=== PATIENT | female | born 1990 ===

== ENCOUNTER 2018-10-02 14:12 | Emergency (ER) | payer OTHER ==
[2018-10-02 14:30] VITALS: RESP 18; O2SAT 100
--- NOTE | 2018-10-02 15:06 | C.PDOC ---
History Of Present Illness 28 year old female comes in to the emergency department complaining of sore throat, glands feeling swollen, and bodyaches x2 days. States she developed a fever this morning. Denies any nausea, vomiting, diarrhea, cough, SOB, or other complaints. Time Seen by Provider: 10/02/18 14:34 Chief Complaint (Nursing): Flu-like Symptoms History Per: Patient History/Exam Limitations: no limitations Onset/Duration Of Symptoms: Days Current Symptoms Are (Timing): Still Present Past Medical History Reviewed: Historical Data, Nursing Documentation, Vital Signs Vital Signs: Last Vital Signs Temp 102.9 F H 10/02/18 14:27 Pulse 110 H 10/02/18 14:27 Resp 18 10/02/18 14:27 BP 122/85 10/02/18 14:27 Pulse Ox 100 10/02/18 14:27 Primary Care Provider: FAMILY PROVIDER,NO - Medical History PMH: Seizures Surgical History: Cholecystectomy Family History: States: No Known Family Hx - Social History Hx Alcohol Use: No Hx Substance Use: No - Immunization History Hx Tetanus Toxoid Vaccination: No Hx Influenza Vaccination: No Hx Pneumococcal Vaccination: No Review Of Systems Constitutional: Positive for: Fever, Other (bodyaches). Negative for: Chills ENT: Positive for: Throat Pain (sore throat) Respiratory: Negative for: Cough, Shortness of Breath Gastrointestinal: Negative for: Nausea, Vomiting, Abdominal Pain, Diarrhea Skin: Negative for: Rash Physical Exam - Physical Exam Appears: Non-toxic, No Acute Distress Skin: Warm, Dry Head: Normacephalic Eye(s): bilateral: Normal Inspection Ear(s): Bilateral: Normal Throat: Erythema (tonsillar erythema and swelling), No Exudate, Other (uvula midline) Neck: Supple Lymphatic: Other (mildly tender to right anterior cervical lymph nodes) Respiratory: Normal Breath Sounds, No Rales, No Rhonchi, No Wheezing Extremity: Normal ROM (of all extremities) Extremity: Bilateral: Normal Color And Temperature Neurological/Psych: Oriented x3, Normal Speech ED Course And Treatment O2 Sat by Pulse Oximetry: 100 (RA) Pulse Ox Interpretation: Normal Medical Decision Making Medical Decision Making: Impression: fever, sore throat and bodyaches. throat exam reveals tonsillar erythema and swelling, non-kissing, no exudates. Will treat clinically for acute infection with Amoxicillin. Tylenol given for fever. Plan: --Amoxicillin 500 mg PO --Tylenol 650 mg PO Disposition Counseled Patient/Family Regarding: Diagnosis, Need For Followup, Rx Given - Disposition Disposition: HOME/ ROUTINE Disposition Time: 15:05 Condition: GOOD Additional Instructions: Take Tylenol or Motrin alternating every 4-6 hours for Fever 100.4F or higher. Rest and drink plenty of fluids to prevent dehydration. Take antibiotic twice a day for 10 days. [place] Tylenol o Motrin alternando cada 4-6 horas para Fever 100.4F o ms. Descansa y tonya muchos lquidos para prevenir la deshidratacin. [place] antibiticos dos veces al da june 10 manriquez. Prescriptions: Amoxicillin 875 mg PO Q12 #20 tablet Instructions: Sore Throat, Adult (DC) Print Language: YI - POA Present On Arrival: None - Clinical Impression Clinical Impression: Acute pharyngitis - PA / [employer] / Resident Statement MD/DO has reviewed & agrees with the documentation as recorded. - Scribe Statement The provider has reviewed the documentation as recorded by the Scribradha Lopez All medical record entries made by the Maganibradha were at my direction and personally dictated by me. I have reviewed the chart and agree that the record accurately reflects my personal performance of the history, physical exam, medical decision making, and the department course for this patient. I have also personally directed, reviewed, and agree with the discharge instructions and disposition.
[2018-10-02 15:24] VITALS: BP 123/86; PULSE 115; TEMP 102
== END 2018-10-02 15:10 | disposition home or self-care (01) ==
LOC: C.ER 14:12
DX: J02.9 Acute pharyngitis, unspecified (principal)